=== PATIENT | male | born 1930 | race Caucasian/White ===

== ENCOUNTER 2016-06-10 13:05 | Day surgery (SDC) | payer MEDICARE ==
[~2016-06-10 13:05] MED LIST: ALPR.5 PO; ASPI325T PO; BENA25TA3 PO; CYAN100015 BUCCAL; CYAN100017 PO; KETO2AER3 TOPICAL; MULT-6 PO; PLAV75TA29 PO; PRED5TAB PO; PROBCAP3; SENO8.6T5 PO; TEST1INJ3 IM
[2016-06-10 13:30] VITALS: BP 160/97; PULSE 69; RESP 20; TEMP 98.3; O2SAT 99
[2016-06-10] MEDS ORDERED: ASPI81CH CHEW (13:33)
[2016-06-10] MEDS ORDERED: OMEP20TA PO (13:33)
[2016-06-10 14:45] VITALS: BP 200/97; PULSE 79; RESP 20; O2SAT 99
--- NOTE | 2016-06-10 15:32 | RADRPT ---
EXAM DATE/TIME: 06/10/2016 14:14 [place] COMPARISON: No previous studies available for comparison. INDICATIONS : Patient with history of recurrent UTI in need of PICC line placement for antibiotics. MEDICAL HISTORY : HTN, Renal disease, Bladder cancer, GERD, Arthritis SURGICAL HISTORY : Hernia repair, TURP, Prostatectomy, Cholecystectomy, Ileostomy ENCOUNTER: Subsequent ACUITY: 1 day PAIN SCORE: 0/10 FLUORO TIME: 0.9 minutes ACCESS: Right brachial vein DEVICE(S): 1.) 4 [place] single lumen 37 cm Xcela Power PICC PROCEDURE : 1. Ultrasound guidance for venous catheterization. 2. Fluoroscopic guidance. 3. Ultrasound & fluoroscopic guided central venous Power PICC line placement. The risks, benefits and alternatives to the procedure were explained and verbal and written consent w as obtained. The site was prepped in sterile fashion. Full sterile technique was used, including ca p, mask, sterile gloves and gown and a large sterile sheet. Hand hygiene and 2% chlorhexidine prep w as utilized per protocol for cutaneous antisepsis with appropriate dry time for site. The skin and s ubcutaneous tissues were infiltrated with local anesthetic solution. Under direct ultrasound guidance, a suitable vein was accessed and a measuring guidewire was introduc ed and positioned in the central venous system. The ultrasound images depicting access guidance were saved and stored to PACS for permanent record. A Power Injectable PICC line was cut to prescribed length and introduced, positioned with tip at the cavoatrial junction level. The line was flushed and secured per protocol. CONCLUSION: 1. Uncomplicated central venous Power PICC line placement. 2. The PICC line can be used immediately. Bill Fajardo MD on June 10, 2016 at 15:30 Board Certified Radiologist. This report was verified electronically.
== END 2016-06-10 15:00 | disposition home or self-care (01) ==
LOC: HROP 13:05 → HRIP 13:06 → HROP 15:00
PROVIDERS: ATTEND Specialist
DX: N39.0 Urinary tract infection, site not specified (principal); N28.9 Disorder of kidney and ureter, unspecified; K21.9 Gastro-esophageal reflux disease without esophagitis; I10 Essential (primary) hypertension; Z87.440 Personal history of urinary (tract) infections; Z85.51 Personal history of malignant neoplasm of bladder
CPT/HCPCS: 36569; 76937; 77001; C1751; J1642

== ENCOUNTER 2016-06-10 18:05 | Emergency (ER) | payer MEDICARE ==
[~2016-06-10] VITALS: Ht 162.6 cm; Wt 65.5 kg
[~2016-06-10 18:05] MED LIST changes: +ASPI81CH CHEW; +OMEP20TA PO
[2016-06-10 18:23] VITALS: BP 169/91; PULSE 77; RESP 16; TEMP 98.1; O2SAT 98
--- NOTE | 2016-06-10 19:44 | PD ---
HPI . PICC line problem Chief Complaint: Director Clinical Information Services Problem Time Seen by Provider: 19:40 Travel History International Travel<30 days: No Contact w/Intl Traveler<30days: No Traveled to known affect area: No History of Present Illness HPI This is a demented patient who has a PICC line in his right arm. It was replaced today because he inadvertently pulled out last night. He has now cut it and pulled it out tonight. It is partially through the skin. His daughter brought him in so that we could remove it. 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 NO CHEMO.NO RADIATION.) Social History Alcohol Use: No Tobacco Use: No Substance Use: No Allergies-Medications (Allergen,Severity, Reaction): Coded Allergies: No Known Allergies (Verified , 06/10/16) Reported Meds & Prescriptions Reported Meds & Active Scripts Active Reported Omeprazole 20 Mg Tab 20 Mg PO EVERY OTHER DAY Aspirin 81 Mg Chew 81 Mg CHEW THREE TIMES A WEEK Ketodan (Ketoconazole (Topical)) 2 % Aer 1 Applic TOPICAL BID Probiotic & Acidophilus F (Probiotic Product) 1 Cap Cap 1 Cap .ROUTE DAILY B-12 (Cyanocobalamin) 1,000 Mcg Cap 1,000 Mcg PO DAILY Plavix (Clopidogrel Bisulfate) 75 Mg Tab 75 Mg PO DAILY Centrum (Multiple Vitamins W/ Minerals) 1 Tab 1 Tab PO DAILY Senokot (Sennosides) 8.6 Mg Tab 8.6 Mg PO DAILY Benadryl Allergy (Diphenhydramine HCl) 25 Mg Tab 25 Mg PO HS PRN Testosterone Cypionate Inj (Testosterone Cypionate) 100 Mg/Ml Inj 200 Mg IM ONCE Prednisone 5 Mg Tab 2.5 Mg PO EVERY OTHER DAY Review of Systems ROS Limitations: Poor Historian Skin: Positive Other ( In the right upper arm which was bleeding at presentation because it was not clamped.) Physical Exam Narrative GENERAL: Demented, elderly man who is in no acute distress. SKIN: Warm and dry. PICC line in the right upper arm. It has now been clamped by the nursing staff. It is out probably 4-6 cm. HEAD: Atraumatic. Normocephalic. EYES: Pupils equal and round. ENT: No nasal bleeding or discharge. NECK: Trachea midline. Neck supple. RESPIRATORY: No accessory muscle use. MUSCULOSKELETAL: No obvious deformities. No edema. NEUROLOGICAL: Awake and alert. Pleasantly demented. No obvious cranial nerve deficits. Motor grossly within normal limits. Normal speech. PSYCHIATRIC: Appropriate mood and affect; insight and judgment poor. Data Data Last Documented VS Vital Signs Date Time Temp Pulse Resp B/P Pulse Ox O2 Delivery O2 Flow Rate FiO2 06/10/16 18:23 98.1 77 16 169/91 98 MDM Medical Decision Making Medical Screen Exam Complete: Yes Emergency Medical Condition: Yes Differential Diagnosis Differential diagnoses is that he has inadvertently pulled out his PICC line. Narrative Course Patient presents with a partially reviewed. It was accidental. The nurse will remove the PICC line and apply a dressing. Diagnosis Primary Impression: S/P PICC central line placement Disposition: 01 DISCHARGE HOME Condition: Stable Kim Beck MD Jun 10, 2016 19:44
== END 2016-06-10 19:54 | disposition home or self-care (01) ==
LOC: PHED 18:05 → PHEFT 19:54
DX: Z46.89 Encounter for fitting and adjustment of other specified devices (principal); F03.90 Unspecified dementia, unspecified severity, without behavioral disturbance, psychotic disturbance, mood disturbance, and anxiety; I10 Essential (primary) hypertension; Z79.01 Long term (current) use of anticoagulants
CPT/HCPCS: 99283